=== PATIENT | female | born 2000 | race Caucasian/White ===

== ENCOUNTER 2023-04-27 06:43 | Emergency (ER) | payer OTHER, SELFPAY ==
[2023-04-27 06:45] VITALS: BP 132/85
[2023-04-27] MEDS: TORADOL 30 MG IM (07:54)
[2023-04-27] MEDS: VALIUM 5 MG PO (07:55)
[2023-04-27 08:09] VITALS: BMI 30.7
--- NOTE | 2023-04-27 08:18 | ED.GENMED ---
History of Present Illness
General
Chief Complaint: Back Pain
Source: patient
Exam Limitations: none
Time Seen by Provider: 04/27/23 07:22
Nursing documentation reviewed up to this point in time: agreed with
Travel History
Have you had any contact with someone who has COVID-19?: No
Do you have any symptoms of coronavirus? Fever > 100 degrees, chills, cough, shortness of breath, sore throat, loss of taste or smell, muscle aches, or headache?: No
History of Present Illness
History of Present Illness:
22 you female transitioning to male prefers to be called Dom, presents w h/o chronic left low back pain with sciatica. Diagnosed with sacroiliitis by PCP Geronimo Lucero 1 month ago and given Meloxicam 7.5 mg BID which helped for a while. States pain is
aching from 'pelvis and down entire L thigh, back of calf, ball of foot, but not the toes.' Last Meloxicam was yesterday.
Sleeping on left side makes pain worse. Has been out of work for two weeks as they down sized and areas felt better with more rest.
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
Denies loss of bowel or bladder, saddle numbness or weakness in legs. Denies fever, n/v, abdominal pain.
Past History
Past History
ED Past Medical History: Psychiatric
ED Past Surgical History: Other (double mastectomy)
Social History
Tobacco: Non-smoker
Alcohol: None
Drug: None
Living: with family
Employment: Employed
Review of Systems
Review of Systems
Allergies reviewed?: Yes
All Other Systems: ROS reviewed and negative except as documented in HPI and ROS
Constitutional: Denies fever
Respiratory: Denies trouble breathing
Cardiac: Denies chest pain
ABD/GI: Denies abdominal pain, nausea or vomiting
: Denies incontinence
Musculoskeletal: Reports back pain
Skin: Reports no symptoms
Neurological: Reports other (aching pain radiates down left leg); Denies weakness or numbness
Phy Exam
Physical Exam
Physical Exam:
GENERAL: No acute distress. A&Ox3.
CONSTITUTIONAL: Afebrile.
RESPIRATORY: Regular respirations, nonlabored, lungs clear.
CARDIOVASCULAR: Regular rate and rhythm, no murmurs, no rubs.
GI: Soft, nontender
MUSCULOSKELETAL: Tender mid left buttock. Able to get from wheelchair to stretcher independently but slowly. Well perfused.
SKIN: Warm, dry, pink
PSYCH: Normal mood and affect. Well kept, interactive and appropriate
NEUROLOGIC: Awake, alert and oriented. Strength equal throughout. No focal neurological deficits
Course
Orders/Labs/Results
Orders:
Orders
04/27/23 07:48
Diazepam [Valium] 5 mg PO NOW STA
Ketorolac [Toradol] 30 mg IM NOW STA
04/27/23 08:16
Lumbar Spine Complete, 4 View [CR Lumbar Spine Comp Min 4 Vw*] Urgent
Comment:
Reason For Exam: low back pain with sciatica
04/27/23 08:17
Pelvis, 1 or 2 Views CR [CR Pelvis - 1 Or 2 Views ] Urgent
Comment:
Reason For Exam: Hx sacroiliitis left PCP request
04/27/23 08:54
Dexamethasone [Decadron] 10 mg PO NOW STA
Vital Signs
Initial and Last Documented VS:
Initial Vital Signs
Temp Pulse Resp BP Pulse Ox
98 F 74 24 132/85 100
04/27/23 06:45 04/27/23 06:45 04/27/23 06:45 04/27/23 06:45 04/27/23 06:45
Last Documented Vital Signs
Temp Pulse Resp BP Pulse Ox
98 F 74 24 132/85 100
04/27/23 06:45 04/27/23 06:45 04/27/23 06:45 04/27/23 06:45 04/27/23 06:45
MDM/Problems Addressed
Differential Diagnosis Includes:
lumbago, sciatica, sacroiliitis
MDM/Problems Addressed:
22 you female transitioning to male prefers to be called Dom, presents w h/o chronic left low back pain with sciatica. Diagnosed with sacroiliitis by PCP Geroinmo Lucero 1 month ago and given Meloxicam 7.5 mg BID which helped for a while. States pain is
aching from 'pelvis and down entire L thigh, back of calf, ball of foot, but not the toes.' Last Meloxicam was yesterday.
Sleeping on left side makes pain worse. Has been out of work for two weeks as they down sized and areas felt better with more rest.
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
Denies loss of bowel or bladder, saddle numbness or weakness in legs. Denies fever, n/v, abdominal pain.
04/27/2023 10:00 AM
Patient states much relief after medications.
Full ROM with neg SLE bilaterally
Patient ambulated out with normal gait at discharge.
Prescription for prednisone sent to his pharmacy as well as Flexeril.
*Critical Care Note
Total Time (30-74mins, 75-104mins- exclusive of procedures): Not Applicable
ED Attending Note
-
Portions of this chart may have been created with voice recognition software.� Occasional wrong word or��sound alike� substitutions may have occurred due to the inherent limitations of voice recognition software.
Discharge Plan
Departure
Patient Disposition: Home (Routine Discharge)
Date of Disposition: 04/27/23
Time of Disposition: 08:54
Patient with high blood pressure during this ER visit?: No
Condition: Good
Discharge Problem:
Left-sided low back pain with left-sided sciatica
Instructions: Low Back Pain (DC), Sciatica (DC), Prednisone, Sciatica Exercises
Prescriptions:
New
prednisone 20 mg tablet
40 mg PO DAILY Qty: 8 0RF
cyclobenzaprine 10 mg tablet
10 mg PO BID PRN (Reason: Back pain) Qty: 14 0RF
No Action
citalopram 10 MG tablet
30 mg PO DAILY
clonidine HCl 0.1 MG tablet extended release 12 hr
0.1 mg PO DAILY
Referrals:
Elie Lucero, [Family Provider] - Follow up in 1 week
Activity Restrictions/Additional Instructions:
As we discussed, your x-rays show nothing worrisome.
You were given Decadron 10 mg, a steroid here today. I sent a prescription for prednisone to your pharmacy, start it tomorrow. Do not take the meloxicam while you are on the steroid, you may take Tylenol however if needed
See your doctor in 1 week if you are not much improved by then.
Interventions
Interventions:
*Risk Screen - Suicide Last Done: 04/27/23 07:59
*General Assessment Last Done: 04/27/23 07:59
*Neglect/Abuse Screening Last Done: 04/27/23 07:59
*ED COVID-19 Vaccine History Last Done: 04/27/23 07:59
*Nursing Disposition Last Done: 04/27/23 10:06
ED-Musculoskeletal Assessment Last Done: 04/27/23 07:59
Discharge Date and Time
Discharge Date/Time: 04/27/23 10:07
[2023-04-27] MEDS: DECADRON 10 MG PO (09:14)
== END 2023-04-27 10:07 | disposition home or self-care (01) ==
LOC: EMR 06:43
PROVIDERS: EMERGENCY PHYSICIAN Student in an Organized Health Care Education/Training Program; FAMILY PHYSICIAN Family Medicine
DX: M54.42 Lumbago with sciatica, left side (principal)
CPT/HCPCS: 99284; 96372; 72110; 72170

== ENCOUNTER 2023-07-15 20:47 | Emergency (ER) | payer OTHER, SELFPAY ==
[2023-07-15 20:50] VITALS: BP 118/74; BMI 32.4
[2023-07-15 21:35] VITALS: BP 108/68
[2023-07-15 22:07] LABS: Amphetamines Negative (Negative); Barbiturates Negative (Negative); Benzodiazepines Negative (Negative); Buprenorphine Negative (Negative); Cocaine Negative (Negative); Marijuana Negative (Negative); Methadone Negative (Negative); Methamphetamines Negative (Negative); Opiates Negative (Negative); Phencyclidine Negative (Negative); Tricyclic Antidepressants Negative (Negative)
[2023-07-15 22:18] LABS: % Basophils 0.2 % (0-2); % Immature Granulocytes 0.4 % (0-0.5); % Lymphocytes 6.5 % (20.5-51.1); % Monocytes 1.1 % (1.7-9.3); % Neutrophils 91.8 % (42.2-75.2); Absolute Immature Granulocytes 0.1 10^3/uL (0-0.05); Absolute Monocytes 0.2 10^3/uL (0.1-0.6); Absolute Neutrophils 13.9 10^3/uL (1.4-6.5); Hematocrit 42.2 % (37.0-47.0); Hemoglobin 14.3 g/dL (12.0-16.0); Mean Corp Hgb Conc. 33.9 g/dL (33.0-37.0); Mean Corpuscular Hgb 29.7 pg (27.0-31.0); Mean Corpuscular Volume 87.6 fL (81.0-99.0); Mean Platelet Volume 10.8 fL (7.4-10.4); Nucleated Red Blood Cells % 0 %; Platelet Count 365 10^3/uL (130-400); Red Blood Cell Count 4.82 10^6/uL (4.20-5.40); Red Cell Dist. Width 13.2 % (11.5-14.5); White Blood Cell Count 15.1 10^3/uL (4.8-10.8)
[2023-07-15 22:30] VITALS: BP 110/66
[2023-07-15 22:31] LABS: Chloride 104 mmol/L (98-107); Potassium 4.6 mmol/L (3.5-5.1); Sodium 140 mmol/L (135-145)
[2023-07-15 22:33] LABS: ALT (SGPT) 15 U/L (0-35); AST (SGOT) 20 U/L (14-36); Acetaminophen < 10 ug/ml (10-30); Albumin 4.5 g/dl (3.5-5.0); Alkaline Phosphatase 107 U/L (38-126); Blood Urea Nitrogen 6 mg/dl (7-17); Calcium 10.1 mg/dl (8.4-10.2); Carbon Dioxide 26 mmol/L (22-30); Estimated Creatinine Clearance 122 ml/min; Glucose 101 mg/dl (70-99); Salicylate < 1.0 mg/dl (2.0-20.0); Total Bilirubin 0.4 mg/dl (0.2-1.3); Total Protein 7.4 g/dl (6.3-8.2); eGFR > 60.00
[2023-07-15 22:34] LABS: Alcohol None Detected; HCG, Serum Qualitative Screen Negative
--- NOTE | 2023-07-15 22:45 | ED.GENMED ---
History of Present Illness
General
Chief Complaint: Overdose Intentional
Source: patient
Exam Limitations: clinical condition
Time Seen by Provider: 07/15/23 21:15
Travel History
Have you had any contact with someone who has COVID-19?: No
Do you have any symptoms of coronavirus? Fever > 100 degrees, chills, cough, shortness of breath, sore throat, loss of taste or smell, muscle aches, or headache?: No
History of Present Illness
History of Present Illness:
22-year-old born female who identifies as male with a history of Asperger's who presents after family is concerned due to threats of killing himself. The patient states that he took several tablets of Flexeril as well as several tablets of
prednisone. He is unable to quantify how many tablets of Flexeril he took to be. Patient states that he was trying to kill himself and is unable to state why he was thinking that way.
Past History
Past History
ED Past Medical History: Psychiatric (Asperger's syndrome, anxiety, depression)
ED Past Surgical History: Other (double mastectomy)
Social History
Tobacco: Non-smoker
Alcohol: None
Drug: None
Living: with family
Employment: Employed
Phy Exam
Physical Exam
Physical Exam:
CONSTITUTIONAL Patient alert and oriented to person, place and time. Well-appearing. Vital signs reviewed.
HEAD atraumatic, normocephalic.
EYES eyelids normal to inspection, Pupils equally round and reactive to light, Extraocular muscles intact, Conjunctiva normal, Sclera normal.
NECK normal range of motion, Trachea midline, no jugular venous distention.
RESPIRATORY CHEST No respiratory distress noted, Chest expansion equal,
ABDOMEN abdomen nontender, Bowel sounds normal. No distention.
BACK normal inspection, no obvious deformities
UPPER EXTREMITY range of motion normal, Motor strength normal, no cyanosis, no edema.
LOWER EXTREMITY range of motion normal, Motor strength normal, no cyanosis, no edema.
NEURO Speech normal, No focal motor deficits Cranial Nerves intact to screening exam. Gait normal
SKIN skin warm, dry, and normal in color.
PSYCHIATRIC poor insight, poor judgment
Course
Orders/Labs/Results
Orders:
Orders
07/15/23 20:53
Crisis Consult Urgent
Reason for Consult: 201
1:1 Observation - Suicide/ Violent Behavior As Directed
07/15/23 21:40
Electrocardiogram (*1) Stat
Reason for Study: Other
Other Reason for Exam: overdose
Cardiac Monitoring- Treatment ONCE
EKG- Treatment ONCE
Test Result ONCE
07/15/23 21:47
Urine Drug Abuse Screen Urgent
Date Specimen was Collected: 07/15/23
Time Specimen was Collected: 21:40
07/15/23 22:12
Acetaminophen Urgent
Alcohol Urgent
Complete Blood Count/With Diff Urgent
Comprehensive Metabolic Panel Urgent
HCG, Serum Qualitative Screen Urgent
Salicylate Urgent
Abnormal Lab Results
07/15/23
22:12
WBC 15.1 H 10^3/uL
(4.8-10.8)
MPV 10.8 H fL
(7.4-10.4)
Abs Immat Gran (auto) 0.1 H 10^3/uL
(0-0.05)
Absolute Neuts (auto) 13.9 H 10^3/uL
(1.4-6.5)
Absolute Lymphs (auto) 1.0 L 10^3/uL
(1.2-3.4)
Neutrophils % 91.8 H %
(42.2-75.2)
Lymphocytes % 6.5 L %
(20.5-51.1)
Monocytes % 1.1 L %
(1.7-9.3)
BUN 6 L mg/dl
(7-17)
Glucose 101 H mg/dl
(70-99)
Salicylates < 1.0 L mg/dl
(2.0-20.0)
Acetaminophen < 10 L ug/ml
(10-30)
07/15/23 22:12
07/15/23 22:12
Vital Signs
Initial and Last Documented VS:
Initial Vital Signs
Temp Pulse Resp BP Pulse Ox
98 F 94 16 118/74 100
07/15/23 20:50 07/15/23 20:50 07/15/23 20:50 07/15/23 20:50 07/15/23 20:50
Last Documented Vital Signs
Temp Pulse Resp BP Pulse Ox
98 F 80 18 108/68 99
07/15/23 20:50 07/15/23 21:35 07/15/23 21:35 07/15/23 21:35 07/15/23 21:35
MDM/Problems Addressed
MDM/Problems Addressed:
Intentional overdose, suicidal thoughts
*Pulse Oximetry
Patient hypoxic: no
*EKG
Interpreted by ED Provider?: Yes
Interpretation: normal
Rate: normal
[place]: normal axis
Interval: normal interval
Ischemia: no ischemia
*[employer] Interpretation
Rate: normal
Interpretation: normal
Rhythm: sinus
*Critical Care Note
Total Time (30-74mins, 75-104mins- exclusive of procedures): Not Applicable
Data Reviewed
Source: patient
Further Testing Considered But Not Given:
Consider head CT but no signs of trauma.
Patient Management
Discussion with other providers: Other (Patient seen by crisis. For placement to psychiatric facility.)
Escalation/DeEscalation of care consider admission/obs:
Patient alda stable. Negative anion gap. EKG unremarkable. Continue to monitor
ED Attending Note
-
Portions of this chart may have been created with voice recognition software.� Occasional wrong word or��sound alike� substitutions may have occurred due to the inherent limitations of voice recognition software.
Discharge Plan
Departure
Prescriptions:
No Action
citalopram 10 MG tablet
50 mg PO DAILY
cyclobenzaprine 10 mg tablet
10 mg PO BID PRN (Reason: Back pain) Qty: 14 0RF
Referrals:
UNKNOWN - PT NOT,INTERVIEWE [Family Provider] -
Interventions
Interventions:
*Risk Screen - Suicide Last Done: 07/15/23 20:50
*General Assessment Last Done: 07/15/23 21:24
*Neglect/Abuse Screening Last Done: 07/15/23 20:50
ED- Fall Risk Assessment Last Done: 07/15/23 20:50
*ED COVID-19 Vaccine History Last Done: 07/15/23 21:24
ED- Cardiac Assessment Last Done: 07/15/23 21:30
ED- Neurological Assessment Last Done: 07/15/23 21:30
ED-Psychological Assessment Last Done: 07/15/23 21:30
ED- Pulmonary Assessment Last Done: 07/15/23 21:30
Discharge Date and Time
Print Language: CHINESE
[2023-07-16 05:56] VITALS: BP 102/53
[2023-07-16 09:36] VITALS: BP 123/61
== END 2023-07-16 10:37 ==
LOC: EMR 20:47
PROVIDERS: EMERGENCY PHYSICIAN Emergency Medicine
DX: R45.851 Suicidal ideations (principal); F32.A Depression, unspecified; F84.5 Asperger's syndrome
CPT/HCPCS: 99285; 80053; 80143; 80179; 80306; 82077; 84703; 85025; 93005

== ENCOUNTER 2023-07-30 10:42 | Emergency (ER) | payer OTHER, SELFPAY ==
[2023-07-30 10:55] VITALS: BP 116/78
[2023-07-30 11:11] VITALS: BMI 29.6
[2023-07-30 11:24] VITALS: BP 117/72
[2023-07-30 12:00] VITALS: BP 108/64
--- NOTE | 2023-07-30 12:17 | ED.GENMED ---
History of Present Illness
General
Chief Complaint: Breathing Problem
Source: patient
Exam Limitations: none
Time Seen by Provider: 07/30/23 12:01
Travel History
Have you had any contact with someone who has COVID-19?: No
Do you have any symptoms of coronavirus? Fever > 100 degrees, chills, cough, shortness of breath, sore throat, loss of taste or smell, muscle aches, or headache?: No
History of Present Illness
History of Present Illness:
22-year-old female currently transitioning to male identifies as Nuno presents complaining of palpitations shortness of breath and fluttering sensation over the past 2 to 3 days. No associated chest pain. No leg swelling or calf pain. No
fever. No cough. Since being here his symptoms have improved. No fever. No other complaints at this time
Past History
Past History
ED Past Medical History: Psychiatric (Asperger's syndrome, anxiety, depression)
ED Past Surgical History: Other (double mastectomy)
Social History
Tobacco: Non-smoker
Alcohol: None
Drug: None
Living: with family
Employment: Employed
Phy Exam
Physical Exam
Physical Exam:
General: Well-appearing no acute respiratory distress
HEENT: Normocephalic atraumatic
Heart: Regular rate and rhythm no murmurs
Lungs: Clear no wheezing or rales
Extremities: No cyanosis or edema
Skin: Warm no rash
Course
Orders/Labs/Results
Orders:
Orders
07/30/23 10:44
EKG [Electrocardiogram (*1)] Urgent
Reason for Study: Palpitations
EKG- Treatment ONCE
07/30/23 12:32
Complete Blood Count/With Diff Urgent
Comprehensive Metabolic Panel Urgent
TSH Reflex To Free T4 Urgent
Abnormal Lab Results
07/30/23
12:32
WBC 13.7 H 10^3/uL
(4.8-10.8)
Abs Immat Gran (auto) 0.1 H 10^3/uL
(0-0.05)
Absolute Neuts (auto) 9.2 H 10^3/uL
(1.4-6.5)
Absolute Monos (auto) 0.9 H 10^3/uL
(0.1-0.6)
07/30/23 12:32
07/30/23 12:32
Vital Signs
Initial and Last Documented VS:
Initial Vital Signs
Temp Pulse Resp BP Pulse Ox
98.8 F 91 18 116/78 96
07/30/23 10:55 07/30/23 10:55 07/30/23 10:55 07/30/23 10:55 07/30/23 10:55
Last Documented Vital Signs
Temp Pulse Resp BP Pulse Ox
98.8 F 81 22 108/64 96
07/30/23 10:55 07/30/23 12:45 07/30/23 12:45 07/30/23 12:00 07/30/23 12:45
MDM/Problems Addressed
Differential Diagnosis Includes:
Palpitations. EKG shows normal sinus rhythm without ischemia. No arrhythmias on monitor. Will check labs for electrolyte abnormality or thyroid disorder. Patient has no pain symptoms are resolving since being here do not suspect PE
*Critical Care Note
Total Time (30-74mins, 75-104mins- exclusive of procedures): Not Applicable
Update Note
Update Note:
Reviewed labs thyroid normal no arrhythmias on monitor electrolytes within normal limits. Patient stable nontoxic. At this point no indication for admission. Recommend follow-up with doctor for possible Holter monitor
ED Attending Note
-
Portions of this chart may have been created with voice recognition software.� Occasional wrong word or��sound alike� substitutions may have occurred due to the inherent limitations of voice recognition software.
Discharge Plan
Departure
Patient Disposition: Home (Routine Discharge)
Date of Disposition: 07/30/23
Time of Disposition: 14:44
Patient with high blood pressure during this ER visit?: No
Discharge Problem:
Palpitations
Instructions: Heart Palpitations
Prescriptions:
No Action
citalopram 10 MG tablet
50 mg PO DAILY
Referrals:
Elie Lucero, [Family Provider] -
Activity Restrictions/Additional Instructions:
Stay hydrated. Return here for worsening symptoms. Follow-up with your doctor otherwise and consider Holter monitor if palpitations persist
Interventions
Interventions:
*Risk Screen - Suicide Last Done: 07/30/23 11:11
*General Assessment Last Done: 07/30/23 11:11
*Neglect/Abuse Screening Last Done: 07/30/23 11:11
ED- Fall Risk Assessment Last Done: 07/30/23 11:11
*ED COVID-19 Vaccine History Last Done: 07/30/23 10:58
ED- Cardiac Assessment Last Done: 07/30/23 11:11
ED- Pulmonary Assessment Last Done: 07/30/23 11:11
Discharge Date and Time
Print Language: DOMINICAN
[2023-07-30 12:39] LABS: % Basophils 0.3 % (0-2); % Immature Granulocytes 0.4 % (0-0.5); % Lymphocytes 24.7 % (20.5-51.1); % Monocytes 6.4 % (1.7-9.3); % Neutrophils 67.2 % (42.2-75.2); Absolute Eosinophils 0.1 10^3/uL (0-0.7); Absolute Immature Granulocytes 0.1 10^3/uL (0-0.05); Absolute Lymphocytes 3.4 10^3/uL (1.2-3.4); Absolute Monocytes 0.9 10^3/uL (0.1-0.6); Absolute Neutrophils 9.2 10^3/uL (1.4-6.5); Hematocrit 39.2 % (37.0-47.0); Hemoglobin 13.2 g/dL (12.0-16.0); Mean Corp Hgb Conc. 33.7 g/dL (33.0-37.0); Mean Corpuscular Hgb 29.7 pg (27.0-31.0); Mean Corpuscular Volume 88.3 fL (81.0-99.0); Mean Platelet Volume 10.4 fL (7.4-10.4); Nucleated Red Blood Cells % 0 %; Platelet Count 394 10^3/uL (130-400); Red Blood Cell Count 4.44 10^6/uL (4.20-5.40); Red Cell Dist. Width 13.1 % (11.5-14.5); White Blood Cell Count 13.7 10^3/uL (4.8-10.8)
[2023-07-30 12:52] LABS: ALT (SGPT) 17 U/L (0-35); AST (SGOT) 22 U/L (14-36); Albumin 4.2 g/dl (3.5-5.0); Alkaline Phosphatase 92 U/L (38-126); Blood Urea Nitrogen 7 mg/dl (7-17); Calcium 9.5 mg/dl (8.4-10.2); Carbon Dioxide 27 mmol/L (22-30); Chloride 103 mmol/L (98-107); Estimated Creatinine Clearance > 125 ml/min; Glucose 95 mg/dl (70-99); Potassium 4.7 mmol/L (3.5-5.1); Sodium 136 mmol/L (135-145); Total Bilirubin 0.5 mg/dl (0.2-1.3); Total Protein 6.9 g/dl (6.3-8.2); eGFR > 60.00
[2023-07-30 13:22] LABS: TSH Reflex To Free T4 1.25 uIU/ml (0.47-4.68)
== END 2023-07-30 14:53 | disposition home or self-care (01) ==
LOC: EMR 10:42
PROVIDERS: Physician Assistant; EMERGENCY PHYSICIAN Emergency Medicine; FAMILY PHYSICIAN Family Medicine
DX: R00.2 Palpitations (principal); F84.5 Asperger's syndrome; F41.8 Other specified anxiety disorders
CPT/HCPCS: 99283; 80053; 84443; 85025; 93005

== ENCOUNTER 2025-02-25 18:38 | Emergency (ER) | payer OTHER, SELFPAY ==
--- NOTE | 2025-02-25 18:49 | EDRN ---
Pt uncooperative and no
[2025-02-25 18:51] VITALS: BP 125/69
--- NOTE | 2025-02-25 19:20 | EDRN ---
Pt arrived in police custody. Attempted to ask pt questions upon arrival and SI screening and pt refusing to speak to anyone. Pt given options, offered water and snacks and continues to remain mute. Pt informed on arrival pt needed to change into
paper scrubs per policy and safety and given option to change by himself or with the help of staff. Police offered to help pt and pt states, 'the only way you can help me is to shoot me in the head.' After 30 minutes of attempting to speak and
reason with pt, pt took paper scrubs and changed into scrubs by himself. Belongings placed in bin. Pt informed of POC at this time. Awaiting to speak to crisis and doctor. 302 completed by police.
--- NOTE | 2025-02-25 21:12 | ED.GENMED ---
History of Present Illness
General
Chief Complaint: Crisis Evaluation
Source: patient
Time Seen by Provider: 02/25/25 21:03
History of Present Illness
History of Present Illness:
24-year-old individual brought to the emergency room by police after patient barricaded himself in a room in the home threatening to commit suicide. Patient had a knife. Patient also indicated that they desired the police to shoot him. Patient
has a history of suicidal ideations and suicide attempt. History obtained mostly from psychiatry evaluation from telepsych. Patient refuses to answer any questions for me. The only response given was nothing new when asked what brings the patient
to the emergency room.
Past History
Past History
ED Past Medical History: Psychiatric (Asperger's syndrome, anxiety, depression)
ED Past Surgical History: Other (double mastectomy)
Social History
Tobacco: Non-smoker
Alcohol: None
Drug: None
Living: with family
Employment: Employed
Phy Exam
Physical Exam
Physical Exam:
General: Awake, Alert, does not answer questions for me. No acute distress
Vitals: unremarkable
Head: Atraumatic
Eyes: Pupils equal, EOMI
Neck: Trachea midline
Lungs: Clear and equal b/l
Heart: Regular rate, no murmurs
Neuro: Nonfocal
Skin: Warm, dry, no rash
Extremities: pulses equal b/l, no edema
Course
Orders/Labs/Results
Orders:
Orders
02/25/25 18:41
Crisis Consult Urgent
Reason for Consult: SI
02/25/25 18:53
One to One Observation - Suicide/Violent [1:1 Observation - Suicide/ Violent Behavior] As Directed
Comment: SI
02/25/25 21:11
1:1 Observation - Suicide/ Violent Behavior As Directed
02/25/25 21:24
Acetaminophen Urgent
Alcohol Urgent
Complete Blood Count/With Diff Urgent
Comprehensive Metabolic Panel Urgent
Salicylate Urgent
Abnormal Lab Results
02/25/25
21:24
WBC 19.1 H 10^3/uL
(4.8-10.8)
Plt Count 421 H 10^3/uL
(130-400)
MPV 10.8 H fL
(7.4-10.4)
Abs Immat Gran (auto) 0.1 H 10^3/uL
(0-0.05)
Absolute Neuts (auto) 16.2 H 10^3/uL
(1.4-6.5)
Absolute Monos (auto) 1.0 H 10^3/uL
(0.1-0.6)
Neutrophils % 84.5 H %
(42.2-75.2)
Lymphocytes % 9.8 L %
(20.5-51.1)
Calcium 10.3 H mg/dl
(8.4-10.2)
Albumin 5.1 H g/dl
(3.5-5.0)
Salicylates < 1.0 L mg/dl
(2.0-20.0)
Acetaminophen < 10 L ug/ml
(10-30)
02/25/25 21:24
02/25/25 21:24
Vital Signs
Initial and Last Documented VS:
Initial Vital Signs
Pulse Resp BP Pulse Ox
136 18 125/69 97
02/25/25 18:51 02/25/25 18:51 02/25/25 18:51 02/25/25 18:51
Last Documented Vital Signs
Pulse Resp BP Pulse Ox
136 20 125/69 97
02/25/25 18:51 02/25/25 21:07 02/25/25 18:51 02/25/25 21:17
MDM/Problems Addressed
Differential Diagnosis Includes:
Patient brought to the emergency room by police under 302 after barricading thimself and threatening to either kill themself or having the police shoot them. Because patient is nonverbal screening labs were obtained. No evidence of significant
ingestion on screening labs. White count is mildly elevated which is a clinically irrelevant finding. Patient medically cleared for psychiatric management. 302 upheld by tele-psychiatry
*Pulse Oximetry
SaO2: 97
Oxygen Mode of Delivery: Room air
Patient hypoxic: no
*Critical Care Note
Total Time (30-74mins, 75-104mins- exclusive of procedures): Not Applicable
ED Attending Note
-
Portions of this chart may have been created with voice recognition software.� Occasional wrong word or��sound alike� substitutions may have occurred due to the inherent limitations of voice recognition software.
Discharge Plan
Departure
Patient Disposition: Psych Facility
Date of Disposition: 02/25/25
Time of Disposition: 21:15
Patient Status:: 302
Condition: Fair
Discharge Problem:
Suicidal ideations
Prescriptions:
No Action
citalopram 10 MG tablet
50 mg PO DAILY
Referrals:
UNKNOWN - PT NOT,INTERVIEWE [Family Provider]
Interventions
Interventions:
*General Assessment Last Done: 02/25/25 18:45
*Neglect/Abuse Screening Last Done: 02/25/25 18:45
*ED COVID-19 Vaccine History Last Done: 02/25/25 18:45
*ED Influenza Vaccine History Last Done: 02/25/25 18:45
[facility] Risk Assessment Tool Last Done: 02/25/25 18:49
*Risk Screen - Suicide (C-SSRS) Last Done: 02/25/25 18:45
ED-Psychological Assessment Last Done: 02/25/25 19:45
Discharge Date and Time
Print Language: [email or web address]
[2025-02-25 21:38] LABS: Hematocrit 43.2 % (37.0-47.0); Hemoglobin 14.3 g/dL (12.0-16.0); Mean Corp Hgb Conc. 33.1 g/dL (33.0-37.0); Mean Corpuscular Volume 88.0 fL (81.0-99.0); Nucleated Red Blood Cells % 0 %; Platelet Count 421 10^3/uL (130-400); Red Cell Dist. Width 13.1 % (11.5-14.5)
[2025-02-25 21:58] LABS: ALT (SGPT) 12 U/L (0-35); AST (SGOT) 17 U/L (14-36); Acetaminophen < 10 ug/ml (10-30); Albumin 5.1 g/dl (3.5-5.0); Alkaline Phosphatase 102 U/L (38-126); Blood Urea Nitrogen 10 mg/dl (7-17); Calcium 10.3 mg/dl (8.4-10.2); Carbon Dioxide 23 mmol/L (22-30); Chloride 104 mmol/L (98-107); Glucose 81 mg/dl (70-99); Potassium 4.6 mmol/L (3.5-5.1); Salicylate < 1.0 mg/dl (2.0-20.0); Sodium 140 mmol/L (135-145); Total Protein 8.2 g/dl (6.3-8.2); eGFR > 60.00
== END 2025-02-26 01:32 ==
LOC: EMR 18:38
PROVIDERS: EMERGENCY PHYSICIAN Emergency Medicine
DX: R45.851 Suicidal ideations (principal); F84.5 Asperger's syndrome; F31.9 Bipolar disorder, unspecified; Z90.13 Acquired absence of bilateral breasts and nipples
CPT/HCPCS: 99285; 80053; 80143; 80179; 82077; 85025